=== PATIENT | female | born 1995 ===

== ENCOUNTER → 2018-08-06 22:29 | Outpatient (REF) | payer SELFPAY ==
[2018-08-07 00:34] LABS: Urine N gonorrhoeae NOT DETECTED
[2018-08-07 00:40] LABS: Urine Chlamydia NOT DETECTED
== END ==
LOC: LAB 22:29
PROVIDERS: Specialist
DX: Z11.3 Encounter for screening for infections with a predominantly sexual mode of transmission (principal); Z11.4 Encounter for screening for human immunodeficiency virus [HIV]
CPT/HCPCS: 87491; 87591